=== PATIENT | female | born 1950 | race Caucasian/White ===

== ENCOUNTER 2018-09-22 08:37 | Day surgery (SDC) | payer MEDICARE, OTHER ==
[~2018-09-22] VITALS: Ht 152.4 cm; Wt 84.5 kg
[~2018-09-22 08:37] MED LIST: 0.9% SODIUM CHLORIDE 10 ML SYRINGE IVP PRN; METOPROLOL TARTRATE 50 MG TABLET PO PRN
[2018-09-22] MEDS ORDERED: BUPR-93 PO (08:56)
[2018-09-22] MEDS ORDERED: ISOS30TA6 PO (08:56)
[2018-09-22] MEDS ORDERED: GABA-531 PO (08:56)
[2018-09-22] MEDS ORDERED: NITR.6 SL (08:56)
[2018-09-22] MEDS ORDERED: METF-960 PO (08:56)
[2018-09-22] MEDS ORDERED: BUPR75 PO (08:56)
[2018-09-22] MEDS ORDERED: GLIP5 PO (08:56)
[2018-09-22] MEDS ORDERED: AMLO-511 PO (08:56)
[2018-09-22] MEDS ORDERED: MECL-111 PO (08:56)
[2018-09-22] MEDS ORDERED: CLOP75TA3 PO (08:56)
[2018-09-22] MEDS ORDERED: METOPROLOL TARTRATE 50 MG TABLET ONE (09:12)
[2018-09-22 10:12] LABS: CALCIUM, TOTAL 8.4 mg/dL (8.8-10.5); CREATININE 1.1 mg/dL (0.60-1.30); POTASSIUM 3.7 mmol/L (3.5-5.1)
[2018-09-22] MEDS ORDERED: IOVERSOL 350 MG/ML 100 ML VIAL ONE (11:15)
[2018-09-22] MEDS ORDERED: SODIUM CHLORIDE 0.9% 100 ML ONE (11:16)
[2018-09-22] MEDS ORDERED: METOPROLOL TARTRATE 5 MG/5 ML VIAL ONE (11:27)
[2018-09-22] MEDS ORDERED: NITROGLYCERIN 400 MCG/SUBLINGUAL SPRAY 4.9 GM BOTTLE SL ONE (11:27)
== END 2018-09-22 12:10 | disposition home or self-care (01) ==
LOC: SURGERY 08:37 → EDSTATUS 10:30 → SURGERY 12:10
PROVIDERS: ATTEND Internal Medicine Cardiovascular Disease
DX: I25.10 Atherosclerotic heart disease of native coronary artery without angina pectoris (principal); M19.90 Unspecified osteoarthritis, unspecified site; Z88.0 Allergy status to penicillin; Z98.890 Other specified postprocedural states
CPT/HCPCS: 36415; 75574; 80048; 93005; J7050; Q9967; J3490

== ENCOUNTER → 2020-11-21 | Outpatient (CLI) | payer MEDICARE, OTHER ==
[~2020-11-21] MED LIST changes: -0.9% SODIUM CHLORIDE 10 ML SYRINGE IVP PRN; +AMLO-257 PO; +BUPR-93 PO; +BUPR75 PO; +CLOP75TA60 PO; +GABA-1181 PO; +GLIP5 PO; +ISOS30TA92 PO; +MECL-160 PO; +METF-960 PO; -METOPROLOL TARTRATE 50 MG TABLET PO PRN; +NITR0.6T11 SL
== END | disposition home or self-care (01) ==
LOC: RADPV 14:59
PROVIDERS: ATTEND Internal Medicine Cardiovascular Disease
DX: R07.89 Other chest pain (principal); R06.02 Shortness of breath
CPT/HCPCS: 93306